=== PATIENT | female | born 1950 | race Caucasian/White ===

== ENCOUNTER 2022-01-14 23:21 | Inpatient (IN) | payer BC ==
[~2022-01-14] VITALS: Ht 154.9 cm; Wt 83.5 kg
[2022-01-14] MEDS ORDERED: ALBUTEROL FS 2.5 MG/3 ML VIAL.NEB CONTNEB ONE (23:30)
[2022-01-14] MEDS ORDERED: IPRATROPIUM NEB FS 0.5 MG/2.5 ML AMPUL.NEB NEB ONE (23:30)
[2022-01-14] MEDS ORDERED: methylPREDNISolone SOD SUCC 125 MG/2ML VIAL IV ONE (23:30)
--- NOTE | 2022-01-14 23:35 | NUR ---
EDA Perez FROM HOME C/O SOB SAT 97%. USED HER INHALER, DID NOT HELP. NEEDS BREATHING TREATMENT. PATIENT ALERT AND ORIENTED X3. IN BED 06 ON MONITOR AND POX, AWAITING MD AVALOS.
[2022-01-14] MEDS ORDERED: IPRATROPIUM NEB FS 0.5 MG/2.5 ML AMPUL.NEB ONE (23:39)
[2022-01-14] MEDS ORDERED: ALBUTEROL FS 2.5 MG/3 ML VIAL.NEB ONE (23:39)
--- NOTE | 2022-01-14 23:45 | NUR ---
RT AT BEDSIDE FOR BREATHING TREATMENT
[2022-01-14] MEDS ORDERED: methylPREDNISolone SOD SUCC 125 MG/2ML VIAL ONE (23:50)
--- NOTE | 2022-01-14 23:53 | NUR ---
ER CLIENT ACCOUNT SPECIALIST AT BEDSIDE
--- NOTE | 2022-01-15 00:03 | NUR ---
ABG results not transferring to [facility]. ABG results with pt on mask 10LPM O2: pH: 7.40 pCO2: 34.7 pO2: 190.4 HCO3: 21.4 BE: -2.7 ABG results reported to Kapil SANZ
[2022-01-15 00:24] LABS: BASOPHILS % (AUTO) 0.2 % (0.0-2.0); EOSINOPHILS % (AUTO) 0.9 % (0.0-6.0); HEMATOCRIT 35 % (33-45); HEMOGLOBIN 11.5 g/dL (11.5-14.8); LYMPHOCYTES # (AUTO) 1.4 K/uL (0.8-4.8); LYMPHOCYTES % (AUTO) 11.6 % (20.0-44.0); MEAN CORPUSCULAR HGB CONC 33 g/dl (31.0-36.0); MEAN CORPUSCULAR VOLUME 91 fL (82-100); MONOCYTES % (AUTO) 8.4 % (2.0-12.0); NEUTROPHILS # (AUTO) 9.5 K/uL (1.8-8.9); NEUTROPHILS % (AUTO) 78.9 % (43.0-81.0); PLATELET COUNT (AUTO) 192 K/uL (150-450); RED BLOOD CELL COUNT(AUTO) 3.82 MIL/uL (4.0-5.2)
[2022-01-15 00:51] LABS: CARBON DIOXIDE 25 mmol/L (21-32); CHLORIDE 104 mmol/L (98-107); CREATININE 0.7 mg/dL (0.6-1.3); GLUCOSE 120 mg/dL (74-106); POTASSIUM 3.7 mmol/L (3.5-5.1); SODIUM SERUM 138 mmol/L (136-145); UREA NITROGEN, BLOOD 20 mg/dL (7-18)
[2022-01-15] MEDS ORDERED: ONDANSETRON HCL/PF 4 MG/2 ML VIAL ONE (01:27)
[2022-01-15] MEDS ORDERED: IV NS 0.9% 1,000 ML IV ONE ×2 (01:30→06:30)
[2022-01-15] MEDS ORDERED: ONDANSETRON HCL/PF 4 MG/2 ML VIAL IV ONE (01:30)
--- NOTE | 2022-01-15 01:37 | NUR ---
Jerry arthur in [facility] - 01/15/22 at 0139 by JA COVID SWAB DONE AND SENT TO LAB
[2022-01-15] MEDS ORDERED: PRED50TA PO (02:24)
--- NOTE | 2022-01-15 02:36 | NUR ---
Jerry arthur in [facility] - 01/15/22 at 0247 by JA Patient discharged to home in stable condition. Written and verbal after care instructions given. Patient verbalizes understanding of instruction.
--- NOTE | 2022-01-15 02:47 | NUR ---
COVID SWAB DONE AND SENT TO LAB
[2022-01-15] MEDS ORDERED: IOHEXOL-350 100 ML VIAL IV ONE (03:08)
[2022-01-15] MEDS ORDERED: IV NS 0.9% 250 ML IV ONE (03:09)
--- NOTE | 2022-01-15 03:16 | NUR ---
PATIENT AT CT
[2022-01-15] MEDS ORDERED: CEFEPIME 1 GM VIAL ONE (04:27)
[2022-01-15] MEDS ORDERED: VANCOMYCIN 1 GM VIAL ONE (04:27)
[2022-01-15] MEDS ORDERED: MAGNESIUM HYDROXIDE 30 ML UDC PO PRN (04:30)
[2022-01-15] MEDS ORDERED: Z GUARD REMEDY 4 OZ OINT TP PRN (04:30)
[2022-01-15] MEDS ORDERED: ONDANSETRON HCL/PF 4 MG/2 ML VIAL IVP PRN (04:30)
[2022-01-15] MEDS ORDERED: MORPHINE SULFATE INJ 2 MG/ML DISP.SYRIN IV PRN (04:30)
[2022-01-15] MEDS ORDERED: VANCOMYCIN 1 GM in IV D5W 250 ML IV ONE (04:30)
[2022-01-15] MEDS ORDERED: HYDROCODONE/APAP 5/325MG TABLET PO PRN (04:30)
[2022-01-15] MEDS ORDERED: CEFEPIME 1 GM in IV D5W 50 ML IV ONE (04:30)
[2022-01-15] MEDS ORDERED: MAG HYDROX/AL HYDROX/SIMETH 30 ML UDC PO PRN (04:30)
--- NOTE | 2022-01-15 06:07 | NUR ---
CRITICAL LABS LACTIC ACID 2.1
--- NOTE | 2022-01-15 06:49 | NUR ---
REPORT GIVEN TO REYNALDO GILL
--- NOTE | 2022-01-15 07:45 | NUR ---
PT TRANSPORTED TO UNIT ON [facility] WITH EMT BEDSIDE. PT IS IN STABLE CONDITION FOR TRANSPORT.
--- NOTE | 2022-01-15 08:00 | NUR ---
MS RN OPENING NOTES: RECEIVED PT FROM ER, AWAKE, A/O X4, ABLE TO MAKE NEEDS KNOWN. PT CURRENTLY HAS NO S/S OF SOB OR ACUTE DISTRESS NOTED. PT IS ON 4L OXYGEN VIA NC. IV ACCESS LFA #18 INFUSING NS @ 75ML/HR. SAFETY MEASURES IN PLACE: HOB ELEVATED, BED LOCKED AND AT LOWEST POSITION, SIDERAILS UP X3. CALL LIGHT AND TABLE WITHIN REACH, WILL CONTINUE TO MONITOR THROUGHOUT SHIFT.
[2022-01-15] MEDS ORDERED: CEFEPIME 1 GM in IV D5W 50 ML IV SCH (09:00)
[2022-01-15] MEDS: PANTOPRAZOLE 40 MG VIAL IV SCH (09:15)
[2022-01-15] MEDS: ENOXAPARIN SODIUM 40 MG/0.4 ML DISP.SYRIN SQ SCH (09:17)
[2022-01-15] MEDS ORDERED: ALBU18HF2 IH (09:22)
[2022-01-15] MEDS ORDERED: OLME20TA13 PO (09:22)
[2022-01-15] MEDS ORDERED: IPRA42SP (09:22)
[2022-01-15] MEDS ORDERED: PRAV40TA3 PO (09:22)
[2022-01-15] MEDS ORDERED: LEVO112T2 PO (09:22)
[2022-01-15] MEDS ORDERED: LUBI24CA5 PO (09:22)
[2022-01-15 10:30] LABS: BILIRUBIN,DIRECT 0.1 mg/dL (0.0-0.2); BILIRUBIN,TOTAL 0.3 mg/dL (0.2-1.0)
[2022-01-15] MEDS ORDERED: CEFTRIAXONE 1 G in IV D5W 50 ML IV SCH (10:30)
[2022-01-15] MEDS: IV NS 0.9% 1,000 ML IV PRN (11:28)
[2022-01-15] MEDS: CEFTRIAXONE 2 G in IV D5W 100 ML IV SCH (11:38)
[2022-01-15] MEDS ORDERED: AZITHROMYCIN 250 MG TABLET PO ONE (12:00)
[2022-01-15] MEDS: predniSONE 20 MG TABLET PO SCH (12:05)
[2022-01-15 12:44] VITALS: BP 158/53
[2022-01-15] MEDS: ALBUTEROL FS 2.5 MG/3 ML VIAL.NEB NEB SCH ×2 (13:10→19:28)
[2022-01-15] MEDS: IPRATROPIUM NEB FS 0.5 MG/2.5 ML AMPUL.NEB NEB SCH ×2 (13:10→19:28)
[2022-01-15 16:00] VITALS: BP 123/61
[2022-01-15] MEDS ORDERED: VANCOMYCIN 1 GM in IV D5W 250 ML IV SCH (17:00)
[2022-01-15] MEDS ORDERED: CEFEPIME 2 GM in IV D5W 100 ML IV SCH (17:00)
[2022-01-15] MEDS: ATORVASTATIN 10 MG TABLET PO SCH (17:32)
--- NOTE | 2022-01-15 18:56 | NUR ---
MS RN CLOSING NOTES: PT IS ASLEEP BUT EASILY AWAKEN, A/O X4, ABLE TO MAKE NEEDS KNOWN. PT CURRENTLY HAS NO S/S OF SOB OR ACUTE DISTRESS NOTED. PT IS ON 4L OXYGEN VIA NC. IV ACCESS LFA #18 INFUSING NS @ 75ML/HR. SAFETY MEASURES IN PLACE: HOB ELEVATED, BED LOCKED AND AT LOWEST POSITION, SIDERAILS UP X3. CALL LIGHT AND TABLE WITHIN REACH, WILL ENDORSE TO NEXT SHIFT.
--- NOTE | 2022-01-15 19:45 | NUR ---
MS RN OPENING NOTES: RECEIVED PATIENT IN BED; AWAKE, ALERT AND ORIENTED X4. BREATHING IS EVEN AND NONLABORED. WITH OXYGEN INHALATION @ 4LPM VIA NASAL CANNULA; TOLERATING WELL. IN NO ACUTE DISTRESS NOTED. DENIES ANY PAIN OR DISCOMFORT AT THIS TIME. WITH IV ACCESS OF LEFT FOREARM G#18; PATENT AND INTACT INFUSING WITH NS REGULATED @ 75 ML/HR; FLUSHES WELL. ABLE TO MAKE NEEDS KNOWN. SAFETY MEASURES IMPLEMENTED: HEAD OF BED ELEVATED, CALL LIGHT & TABLE WITHIN REACH, SIDE RAILS UP X2, BED IN LOWEST LOCKED POSITION. WILL CONTINUE TO MONITOR
[2022-01-15 20:00] VITALS: BP 128/69
[2022-01-16] MEDS: ALBUTEROL FS 2.5 MG/3 ML VIAL.NEB NEB SCH ×4 (01:30→19:39)
[2022-01-16] MEDS: IPRATROPIUM NEB FS 0.5 MG/2.5 ML AMPUL.NEB NEB SCH ×4 (01:30→19:39)
[2022-01-16 06:24] LABS: HEMATOCRIT 30 % (33-45); HEMOGLOBIN 9.9 g/dL (11.5-14.8); LYMPHOCYTES # (AUTO) 1.4 K/uL (0.8-4.8); LYMPHOCYTES % (AUTO) 9.5 % (20.0-44.0); MEAN CORPUSCULAR HGB CONC 33 g/dl (31.0-36.0); MEAN CORPUSCULAR VOLUME 91 fL (82-100); MONOCYTES # (AUTO) 1.8 K/uL (0.1-1.30); MONOCYTES % (AUTO) 11.9 % (2.0-12.0); NEUTROPHILS # (AUTO) 11.8 K/uL (1.8-8.9); NEUTROPHILS % (AUTO) 78.6 % (43.0-81.0); PLATELET COUNT (AUTO) 192 K/uL (150-450); RED BLOOD CELL COUNT(AUTO) 3.32 MIL/uL (4.0-5.2); WHITE BLOOD COUNT (AUTO) 15.1 K/uL (4.3-11.0)
--- NOTE | 2022-01-16 07:05 | NUR ---
MS RN CLOSING NOTES: PATIENT IN BED; AWAKE, ALERT AND ORIENTED X4. BREATHING EVENLY AND UNLABORED. WITH OXYGEN INHALATION @ 4LPM VIA NASAL CANNULA; TOLERATING WELL. IN NO ACUTE DISTRESS NOTED. DENIES ANY PAIN OR DISCOMFORT AT THIS TIME. WITH IV ACCESS OF LEFT FOREARM G#18; PATENT AND INTACT INFUSING WITH NS REGULATED @ 75 ML/HR; FLUSHES WELL. SAFETY MEASURES IN PLACE: HEAD OF BED ELEVATED, CALL LIGHT & TABLE WITHIN REACH, SIDE RAILS UP X2, BED IN LOWEST LOCKED POSITION. ENDORSED TO MORNING SHIFT FOR WEI.
[2022-01-16 07:19] LABS: CALCIUM, SERUM 8.6 mg/dL (8.5-10.1); CREATININE 0.6 mg/dL (0.6-1.3); PHOSPHORUS 3.2 mg/dL (2.5-4.9); POTASSIUM 3.9 mmol/L (3.5-5.1)
[2022-01-16] MEDS: LEVOTHYROXINE SODIUM 112 MCG TABLET PO SCH (07:30)
[2022-01-16 07:32] LABS: THYROID STIMULATING HORMONE 0.333 uIU/mL (0.358-3.74)
--- NOTE | 2022-01-16 07:45 | NUR ---
MS RN OPENING NOTES RECEIVED PATIENT IN BED; ASLEEP. BREATHING EVEN AND UNLABORED. ON O2 THERAPY @ 4LPM VIA NASAL CANNULA; TOLERATING WELL. IN NO ACUTE RESPIRATORY DISTRESS. NOS/S OF PAIN NOTED. WITH IV ACCESS OF LEFT FOREARM G#18; PATENT AND INTACT INFUSING WITH NS REGULATED @ 75 ML/HR; FLUSHES WELL. SAFETY PRECAUTIONS IN PLACE: BED IN LOW POSITION AND LOCKED, RAILS UP X2, CALL LIGHT WITHIN REACH. WILL CONTINUE TO MONITOR PATIENT.
[2022-01-16] MEDS: predniSONE 20 MG TABLET PO SCH (08:22)
[2022-01-16] MEDS: LOSARTAN POTASSIUM 50 MG TABLET PO SCH (08:23)
[2022-01-16] MEDS: ENOXAPARIN SODIUM 40 MG/0.4 ML DISP.SYRIN SQ SCH (08:23)
[2022-01-16] MEDS: PANTOPRAZOLE 40 MG VIAL IV SCH (08:23)
[2022-01-16] MEDS: CEFTRIAXONE 2 G in IV D5W 100 ML IV SCH (10:27)
[2022-01-16] MEDS: AZITHROMYCIN 250 MG TABLET PO SCH (11:26)
[2022-01-16] MEDS: ACETAMINOPHEN 325 MG TABLET PO PRN (16:38)
--- NOTE | 2022-01-16 16:39 | NUR ---
MS RN NOTES PATIENT COMPLAINING OF HEADACHE 4 OUT OF 10; REQUESTING PAIN MEDICATION. PRN TYLENOL ADMINISTERED.
[2022-01-16] MEDS: ATORVASTATIN 10 MG TABLET PO SCH (17:33)
--- NOTE | 2022-01-16 18:47 | NUR ---
MS RN CLOSING NOTES PATIENT REMAINS IN BED; ASLEEP. BREATHING EVEN AND UNLABORED. A/O X4 DURING SHIFT. ON O2 THERAPY @ 4LPM VIA NASAL CANNULA; TOLERATING WELL. IN NO ACUTE RESPIRATORY DISTRESS. WITH IV ACCESS OF LEFT FOREARM G#18; PATENT AND INTACT INFUSING WITH NS @ 75 ML/HR; FLUSHES WELL. ALL NEEDS ATTENDED DURING THE DAY. SAFETY PRECAUTIONS IN PLACE: BED IN LOW POSITION AND LOCKED, RAILS UP X2, CALL LIGHT WITHIN REACH. WILL ENDORSE TO COMMUTATOR OPERATOR NURSE FOR WEI.
--- NOTE | 2022-01-16 19:48 | NUR ---
RN OPENING NOTE PATIENT AWAKE IN BED W/ AT BEDSIDE. A/OX4. NO S/S OF DISTRESS, BREATHING W/O DIFFICULTY ON RM AIR. LFA #18 INTACT AND PATENT W/ NS 75ML/HR. SAFETY MEASURES IN PLACE: BED LOCKED, AT LOWEST POSITION, RAILS UP X3, CALL HOBBS WITHIN REACH. WILL CONTINUE TO MONITOR PATIENT. Addendum: 01/16/22 at 1951 by HENOK MOSES RN CORRECTION: BREATHING W/O DIFFICULTY ON 4L NC.
[2022-01-16 20:00] VITALS: BP 131/57
[2022-01-17] MEDS: IPRATROPIUM NEB FS 0.5 MG/2.5 ML AMPUL.NEB NEB SCH ×5 (02:14→20:59)
[2022-01-17] MEDS: ALBUTEROL FS 2.5 MG/3 ML VIAL.NEB NEB SCH ×4 (02:14→20:25)
[2022-01-17] MEDS: IV NS 0.9% 1,000 ML IV PRN (04:11)
--- NOTE | 2022-01-17 05:50 | NUR ---
RN NOTE PATIENT'S LFA IV SITE BECAME INFILTRATED. IV WAS REMOVED SUCCESSFULLY; ALL PIECES ACCOUNTED FOR INCLUDING IV CATH. PRESSURE DRESSING APPLIED. NEW IV INSERTED RFA #22 SUCCESSFULLY. PATIENT STABLE; WILL CONTINUE TO MONITOR PATIENT.
--- NOTE | 2022-01-17 06:56 | NUR ---
RN CLOSING NOTE PATIENT ASLEEP IN BED. A/OX4. NO S/S OF DISTRESS, BREATHING W/O DIFFICULTY ON 4L NC (98%). QUETA #22 INTACT AND PATENT W/ NS 75ML/HR. SAFETY MEASURES IN PLACE: BED LOCKED, IN LOWEST POSITION, RAILS UP X2, CALL HOBBS WITHIN REACH. REPORT GIVEN TO AND ACKNOWLEDGED BY NANNETTE RNTAMMY, FOR WEI.
[2022-01-17 07:14] LABS: BASOPHILS % (AUTO) 0.1 % (0.0-2.0); EOSINOPHILS % (AUTO) 0.1 % (0.0-6.0); HEMATOCRIT 30 % (33-45); HEMOGLOBIN 9.9 g/dL (11.5-14.8); LYMPHOCYTES # (AUTO) 1.6 K/uL (0.8-4.8); LYMPHOCYTES % (AUTO) 14.3 % (20.0-44.0); MEAN CORPUSCULAR HGB CONC 33 g/dl (31.0-36.0); MEAN CORPUSCULAR VOLUME 90 fL (82-100); MONOCYTES % (AUTO) 8.4 % (2.0-12.0); NEUTROPHILS # (AUTO) 8.8 K/uL (1.8-8.9); NEUTROPHILS % (AUTO) 77.1 % (43.0-81.0); PLATELET COUNT (AUTO) 192 K/uL (150-450); RED BLOOD CELL COUNT(AUTO) 3.32 MIL/uL (4.0-5.2); WHITE BLOOD COUNT (AUTO) 11.4 K/uL (4.3-11.0)
--- NOTE | 2022-01-17 07:30 | NUR ---
RN OPENING NOTE PATIENT AWAKE IN BED. A/OX4. NO S/S OF DISTRESS, BREATHING W/O DIFFICULTY ON RM AIR. RFA # 22 INTACT AND PATENT W/ NS 75ML/HR. SAFETY MEASURES IN PLACE: BED LOCKED, AT LOWEST POSITION, RAILS UP X3, CALL HOBBS WITHIN REACH.
[2022-01-17 08:00] VITALS: BP 120/50
[2022-01-17] MEDS: predniSONE 20 MG TABLET PO SCH (08:32)
[2022-01-17] MEDS: PANTOPRAZOLE 40 MG VIAL IV SCH (08:32)
[2022-01-17] MEDS: LOSARTAN POTASSIUM 50 MG TABLET PO SCH (08:32)
[2022-01-17] MEDS: LEVOTHYROXINE SODIUM 112 MCG TABLET PO SCH (08:32)
[2022-01-17] MEDS: ENOXAPARIN SODIUM 40 MG/0.4 ML DISP.SYRIN SQ SCH (08:34)
[2022-01-17 09:34] LABS: CALCIUM, SERUM 8.4 mg/dL (8.5-10.1); CREATININE 0.6 mg/dL (0.6-1.3); POTASSIUM 3.8 mmol/L (3.5-5.1)
[2022-01-17] MEDS: AZITHROMYCIN 250 MG TABLET PO SCH (11:20)
[2022-01-17] MEDS: CEFTRIAXONE 2 G in IV D5W 100 ML IV SCH (11:20)
[2022-01-17] MEDS ORDERED: FUROSEMIDE 40 MG/4 ML VIAL IV ONE (11:30)
--- NOTE | 2022-01-17 15:00 | NUR ---
RN NOTE PATIENTS 02TITRATED TO 2L WILL MONITOR 1600 VITALS FOR O2 SATURATION.
[2022-01-17 16:00] VITALS: BP 114/44
[2022-01-17 16:04] VITALS: BP 114/44
[2022-01-17] MEDS: ATORVASTATIN 10 MG TABLET PO SCH (17:32)
--- NOTE | 2022-01-17 18:43 | NUR ---
RN CLOSING NOTE PATIENT ASLEEP IN BED. A/OX4. NO S/S OF DISTRESS, BREATHING W/O DIFFICULTY ON 4L NC (98%). QUETA #22 INTACT AND PATENT W/ NS 75ML/HR. SAFETY MEASURES IN PLACE: BED LOCKED, IN LOWEST POSITION, RAILS UP X2, CALL HOBBS WITHIN REACH. WILL ENDORSE TO NIGHT NURSE FOR WEI.
--- NOTE | 2022-01-17 19:15 | NUR ---
RN opening notes Received Pt from morning nurse. Pt is sitting in bed accompanied by her . Pt is alert and orientedX4. On 2 L NC. No SOB. No S/S of distress noted. R forearm # 22 is clean, intact and SL. Safety precautions is maintained. Bed at low position, brakes locked, side rails upX2, hob elevated, bed alarm is on, bedside commode at the bedside and call light is within reach. will continue to monitor.
[2022-01-17 20:00] VITALS: BP 100/33
[2022-01-17 21:12] VITALS: BP 101/33
[2022-01-18] MEDS: IPRATROPIUM NEB FS 0.5 MG/2.5 ML AMPUL.NEB NEB SCH ×3 (01:14→12:51)
[2022-01-18] MEDS: ALBUTEROL FS 2.5 MG/3 ML VIAL.NEB NEB SCH ×3 (01:15→12:51)
[2022-01-18 06:29] LABS: BASOPHILS % (AUTO) 0.3 % (0.0-2.0); EOSINOPHILS % (AUTO) 0.3 % (0.0-6.0); HEMATOCRIT 32 % (33-45); HEMOGLOBIN 10.9 g/dL (11.5-14.8); LYMPHOCYTES # (AUTO) 2.1 K/uL (0.8-4.8); MEAN CORPUSCULAR HGB CONC 34 g/dl (31.0-36.0); MEAN CORPUSCULAR VOLUME 89 fL (82-100); MONOCYTES # (AUTO) 1.1 K/uL (0.1-1.30); MONOCYTES % (AUTO) 13.5 % (2.0-12.0); NEUTROPHILS # (AUTO) 4.8 K/uL (1.8-8.9); NEUTROPHILS % (AUTO) 59.9 % (43.0-81.0); PLATELET COUNT (AUTO) 209 K/uL (150-450); RED BLOOD CELL COUNT(AUTO) 3.57 MIL/uL (4.0-5.2)
--- NOTE | 2022-01-18 06:34 | NUR ---
RN closing notes Pt is resting in bed comfortably. Pt is alert and orientedX4. On 2 L NC. No SOB. No S/S of distress noted. VS is stable. R forearm # 22 is clean, intact and SL. Kept Pt clean, dry and comfortbale. Safety precautions is maintained. Bed at low position, brakes locked, side rails upX2, hob elevated, bed alarm is on, bedside commode at the bedside and call light is within reach. Will endorse to am nurse for WEI.
--- NOTE | 2022-01-18 07:50 | NUR ---
MS RN OPENING NOTE Patient in bed, awake. A/O x 4, able to make needs known. On O2 at 2 LPM, breathing evenly and unlabored. No SOB or s/s of distress noted. IV access on RFA #22 SL, intact and patent. Patient denies any pain or discomfort at this time. Safety precautions in place: bed in low, locked position; siderails up x 2; call ight6 within reach. Will continue to monitor.
[2022-01-18 07:56] LABS: CALCIUM, SERUM 8.7 mg/dL (8.5-10.1); CARBON DIOXIDE 32 mmol/L (21-32); CHLORIDE 102 mmol/L (98-107); CREATININE 0.6 mg/dL (0.6-1.3); GLUCOSE 88 mg/dL (74-106); PHOSPHORUS 3.8 mg/dL (2.5-4.9); POTASSIUM 3.6 mmol/L (3.5-5.1); SODIUM SERUM 140 mmol/L (136-145); UREA NITROGEN, BLOOD 10 mg/dL (7-18)
[2022-01-18 08:00] VITALS: BP 114/43
--- NOTE | 2022-01-18 08:26 | NUR ---
RN NOTE Dr. Deutsch removed O2 supplementation, to monitor patient without O2.
[2022-01-18] MEDS: LEVOTHYROXINE SODIUM 112 MCG TABLET PO SCH ×2 (08:33→08:42)
[2022-01-18] MEDS: ENOXAPARIN SODIUM 40 MG/0.4 ML DISP.SYRIN SQ SCH (08:42)
[2022-01-18] MEDS: predniSONE 20 MG TABLET PO SCH (08:42)
[2022-01-18] MEDS: AZITHROMYCIN 250 MG TABLET PO SCH (08:42)
[2022-01-18 08:44] VITALS: BP 114/43
[2022-01-18] MEDS: LOSARTAN POTASSIUM 50 MG TABLET PO SCH (08:44)
[2022-01-18] MEDS: ACETAMINOPHEN 325 MG TABLET PO PRN (08:44)
[2022-01-18] MEDS ORDERED: PANTOPRAZOLE 40 MG TABLET.DR PO SCH (09:00)
--- NOTE | 2022-01-18 09:30 | NUR ---
RN NOTE Rechecked patient's SPO2 96%. Will continue to monitor.
[2022-01-18] MEDS ORDERED: PRED50TA PO (09:41)
[2022-01-18] MEDS ORDERED: FUROSEMIDE 20 MG/2 ML VIAL IV ONE (10:00)
[2022-01-18] MEDS: CEFTRIAXONE 2 G in IV D5W 100 ML IV SCH (10:20)
--- NOTE | 2022-01-18 11:00 | NUR ---
RN NOTE Rechecked patient's SPO2 98%. Will continue to monitor.
--- NOTE | 2022-01-18 14:00 | NUR ---
CEMENT MIXER NOTES PATIENT RECEIVED ON BED AWAKE / A/O X 4 , ABLE TO MAKE NEEDS KNOWN , DUE MEDS ATB AND PO MEDS GIVEN , BRP AND PT AMBULATE AD LUIS M , NO SOB AND DISTRESS NOTED , SEEN BY MD AND WITH ORDER FOR D/C TO HOME , DISCHARGED INSTRUCTIONS PROVIDED REGARDING MEDICATIONS , FOLLOW UP WITH PRIMARY PCP AND SAFETY PRECAUTIONS AND ABLE TO UNDERSTAND INSTRUCTIONS PROVIDED , LFA SALINE LOCK REMOVED AND PATIENT LEFT AROUND 1400 WITH FAMILY VIA PRIVATE CAR.
== END 2022-01-18 13:10 | disposition home or self-care (01) | DRG 189 ==
LOC: ER 23:56 → TRANSITION 01-15 05:13 → MED 01-15 06:25
PROVIDERS: ADMIT Nurse Practitioner Acute Care; ATTEND Nurse Practitioner Acute Care
DX: J96.01 Acute respiratory failure with hypoxia (principal); J45.901 Unspecified asthma with (acute) exacerbation; E87.2 Acidosis; J84.9 Interstitial pulmonary disease, unspecified; E78.5 Hyperlipidemia, unspecified; I10 Essential (primary) hypertension; K21.9 Gastro-esophageal reflux disease without esophagitis; Z20.822 Contact with and (suspected) exposure to COVID-19
CPT/HCPCS: 36415; 36600; 70360-TC; 71045-TC; 80048-TC; 80202-TC; 82247-TC; 82248-TC; 82803-TC; 83605-TC; 83735-TC; 83880; 84100-TC; 84443-TC; 85025-TC; 87040-TC; 87081-TC; 92526; 92611-TC; 94799-TC; C9113; G0378; J0692; J0696; J1650; J1940; J2270; J2405; J2930; J3370; J7030; J7040; J7050; J7060; Q9967

== ENCOUNTER 2023-05-30 22:42 | Emergency (ER) | payer BC, MEDICARE, OTHER ==
[~2023-05-30] VITALS: Ht 152.4 cm; Wt 83.9 kg
[~2023-05-30 22:42] MED LIST: ALBU18HF2 IH; IPRA42SP; LEVO112T2 PO; LEVO50TA PO; LUBI24CA5 PO; OLME20TA13 PO; PRAV40TA3 PO; PRED50TA PO; TRAM1TAB PO; VALS80TA2 PO
[2023-05-30] MEDS ORDERED: methylPREDNISolone SOD SUCC 125 MG/2ML VIAL ONE (23:33)
[2023-05-30 23:38] LABS: CALCIUM, SERUM 8.7 mg/dL (8.5-10.1); CARBON DIOXIDE 27 mmol/L (21-32); CHLORIDE 103 mmol/L (98-107); CREATININE 0.9 mg/dL (0.6-1.3); GLUCOSE 108 mg/dL (74-106); POTASSIUM 4.1 mmol/L (3.5-5.1); SODIUM SERUM 137 mmol/L (136-145); UREA NITROGEN, BLOOD 22 mg/dL (7-18)
[2023-05-30] MEDS: methylPREDNISolone SOD SUCC 125 MG/2ML VIAL IV ONE (23:45)
[2023-05-30] MEDS: ALBUTEROL FS 2.5 MG/3 ML VIAL.NEB NEB ONE (23:48)
[2023-05-30] MEDS: IPRATROPIUM NEB FS 0.5 MG/2.5 ML AMPUL.NEB NEB ONE (23:48)
[2023-05-30 23:49] LABS: BASOPHILS # (AUTO) 0.1 K/uL (0.0-0.2); BASOPHILS % (AUTO) 0.7 % (0.0-2.0); EOSINOPHILS # (AUTO) 0.2 K/uL (0.0-0.7); EOSINOPHILS % (AUTO) 1.9 % (0.0-6.0); HEMATOCRIT 35 % (33-45); HEMOGLOBIN 11.6 g/dL (11.5-14.8); LYMPHOCYTES # (AUTO) 2.2 K/uL (0.8-4.8); MEAN CORPUSCULAR HEMOGLOBIN 30 PG (26.0-33.0); MEAN CORPUSCULAR HGB CONC 33 g/dl (31.0-36.0); MEAN CORPUSCULAR VOLUME 91 fL (82-100); NEUTROPHILS # (AUTO) 6.6 K/uL (1.8-8.9); NEUTROPHILS % (AUTO) 65.4 % (43.0-81.0); PLATELET COUNT (AUTO) 232 K/uL (150-450); RED BLOOD CELL COUNT(AUTO) 3.88 MIL/uL (4.0-5.2); RED CELL DISTRIBUTION WIDTH 13.7 % (11.5-15.0)
[2023-05-30] MEDS ORDERED: IPRATROPIUM NEB FS 0.5 MG/2.5 ML AMPUL.NEB ONE (23:49)
[2023-05-30] MEDS ORDERED: ALBUTEROL FS 2.5 MG/3 ML VIAL.NEB ONE (23:49)
[2023-05-30 23:50] LABS: ALANINE AMINOTRANSFERASE 28 U/L (12-78); ALBUMIN 3.6 g/dL (3.4-5.0); ALKALINE PHOSPHATASE 99 U/L (46-116); ASPARTATE AMINOTRANSFERASE 13 U/L (15-37); BILIRUBIN,TOTAL 0.2 mg/dL (0.2-1.0); NT-PRO BNP 170 pg/mL (0-125); TOTAL PROTEIN, SERUM 7.2 g/dL (6.4-8.2)
[2023-05-30 23:53] VITALS: O2SAT 96
[2023-05-30 23:55] LABS: INR 0.97 (0.91-1.10); PARTIAL THROMBOPLASTIN TIME 26.6 SEC (24.3-34.3); PROTHROMBIN TIME 10.3 SECS (9.2-11.1)
[2023-05-31 00:07] VITALS: O2SAT 98
[2023-05-31] MEDS ORDERED: Magnesium 1GM/D5W 100ML PREMIX 100 ML IV ONE ×2 (00:47→01:35)
[2023-05-31] MEDS: Magnesium 1GM/D5W 100ML PREMIX 200 ML IV ONE (00:50)
[2023-05-31] MEDS ORDERED: IPRATROPIUM NEB FS 0.5 MG/2.5 ML AMPUL.NEB ONE (01:07)
[2023-05-31] MEDS ORDERED: ALBUTEROL FS 2.5 MG/3 ML VIAL.NEB ONE (01:07)
[2023-05-31 01:08] VITALS: O2SAT 98
[2023-05-31] MEDS: IPRATROPIUM NEB FS 0.5 MG/2.5 ML AMPUL.NEB NEB ONE (01:11)
[2023-05-31] MEDS: ALBUTEROL FS 2.5 MG/3 ML VIAL.NEB NEB ONE (01:11)
[2023-05-31 01:27] VITALS: O2SAT 97
[2023-05-31] MEDS ORDERED: PRED50TA PO ×3 (02:06→17:05)
[2023-05-31 02:23] VITALS: BP 125/66; TEMP 98.6; O2SAT 97
[2023-05-31] MEDS ORDERED: ASPI-1169 PO (17:05)
[2023-05-31] MEDS ORDERED: IPRA0.2S9 IH (17:05)
[2023-05-31] MEDS ORDERED: ALBU2.5V38 IH (17:05)
== END 2023-05-31 02:24 | disposition home or self-care (01) ==
LOC: ER 22:52
DX: J45.901 Unspecified asthma with (acute) exacerbation (principal); R06.02 Shortness of breath; R07.89 Other chest pain; I10 Essential (primary) hypertension; E03.9 Hypothyroidism, unspecified; Z98.890 Other specified postprocedural states; Z79.899 Other long term (current) drug therapy
CPT/HCPCS: 99291; 96375; 93005; 71045; 85025; 80048; 80076; 36415; 84484; 85730; 83880; 94640 ×2; 96365; J2930; J3475 ×2

== ENCOUNTER 2023-05-31 15:53 | Inpatient (IN) | payer BC ==
[~2023-05-31] VITALS: Ht 152.4 cm; Wt 83.9 kg
[2023-05-31 16:28] LABS: HEMATOCRIT 34 % (33-45); HEMOGLOBIN 11.2 g/dL (11.5-14.8); LYMPHOCYTES # (AUTO) 0.8 K/uL (0.8-4.8); LYMPHOCYTES % (AUTO) 6.9 % (20.0-44.0); MEAN CORPUSCULAR HEMOGLOBIN 30 PG (26.0-33.0); MEAN CORPUSCULAR HGB CONC 33 g/dl (31.0-36.0); MEAN CORPUSCULAR VOLUME 90 fL (82-100); MONOCYTES # (AUTO) 0.4 K/uL (0.1-1.30); MONOCYTES % (AUTO) 3.8 % (2.0-12.0); NEUTROPHILS % (AUTO) 89.3 % (43.0-81.0); PLATELET COUNT (AUTO) 251 K/uL (150-450); RED BLOOD CELL COUNT(AUTO) 3.79 MIL/uL (4.0-5.2); RED CELL DISTRIBUTION WIDTH 14.1 % (11.5-15.0); WHITE BLOOD COUNT (AUTO) 11.2 K/uL (4.3-11.0)
[2023-05-31] MEDS ORDERED: IPRATROPIUM NEB FS 0.5 MG/2.5 ML AMPUL.NEB NEB ONE (16:30)
[2023-05-31] MEDS ORDERED: ALBUTEROL FS 2.5 MG/3 ML VIAL.NEB CONTNEB ONE (16:30)
[2023-05-31] MEDS ORDERED: Magnesium 1GM/D5W 100ML PREMIX 200 ML IV ONE (16:30)
[2023-05-31] MEDS ORDERED: methylPREDNISolone SOD SUCC 125 MG/2ML VIAL IV ONE (16:30)
[2023-05-31] MEDS ORDERED: Magnesium 1GM/D5W 100ML PREMIX 100 ML IV ONE (16:38)
[2023-05-31] MEDS ORDERED: methylPREDNISolone SOD SUCC 125 MG/2ML VIAL ONE (16:38)
[2023-05-31] MEDS ORDERED: ALBUTEROL FS 2.5 MG/3 ML VIAL.NEB ONE (16:44)
[2023-05-31] MEDS ORDERED: IPRATROPIUM NEB FS 0.5 MG/2.5 ML AMPUL.NEB ONE (16:44)
[2023-05-31 16:48] VITALS: O2SAT 97
[2023-05-31 17:04] LABS: ALBUMIN 3.6 g/dL (3.4-5.0); BILIRUBIN,DIRECT 0.1 mg/dL (0.0-0.2); BILIRUBIN,TOTAL 0.3 mg/dL (0.2-1.0); CALCIUM, SERUM 8.9 mg/dL (8.5-10.1); CREATININE 1.1 mg/dL (0.6-1.3); POTASSIUM 3.6 mmol/L (3.5-5.1); TOTAL PROTEIN, SERUM 7.4 g/dL (6.4-8.2)
[2023-05-31] MEDS ORDERED: PRED50TA PO (17:05)
[2023-05-31] MEDS ORDERED: ALBU2.5V38 IH (17:05)
[2023-05-31] MEDS ORDERED: IPRA0.2S9 IH (17:05)
[2023-05-31] MEDS ORDERED: ASPI-1169 PO (17:05)
[2023-05-31 17:35] VITALS: O2SAT 97
[2023-05-31] MEDS ORDERED: ONDANSETRON HCL/PF 4 MG/2 ML VIAL IVP PRN (18:00)
[2023-05-31] MEDS ORDERED: MAGNESIUM HYDROXIDE 30 ML UDC PO PRN (18:00)
[2023-05-31] MEDS ORDERED: IPRATROPIUM NEB FS 0.5 MG/2.5 ML AMPUL.NEB NEB PRN (18:00)
[2023-05-31] MEDS ORDERED: ALBUTEROL FS 2.5 MG/0.5 ML VIAL.NEB NEB PRN (18:00)
[2023-05-31] MEDS ORDERED: Z GUARD REMEDY 4 OZ OINT TP PRN (18:00)
[2023-05-31] MEDS ORDERED: HYDROCODONE/APAP 5/325MG TABLET PO PRN (18:00)
[2023-05-31] MEDS ORDERED: MAG HYDROX/AL HYDROX/SIMETH 30 ML UDC PO PRN (18:00)
[2023-05-31 21:50] VITALS: BP 131/52; TEMP 99; O2SAT 97
[2023-05-31 22:30] VITALS: BP 131/52; TEMP 99; O2SAT 97
[2023-05-31] MEDS: ATORVASTATIN 40 MG TABLET PO SCH (22:32)
[2023-05-31] MEDS: LEVOFLOXACIN (250MG) 250 MG TABLET PO SCH (22:33)
[2023-05-31] MEDS: methylPREDNISolone SOD SUCC 125 MG/2ML VIAL IV SCH (22:36)
[2023-05-31] MEDS: ENOXAPARIN SODIUM 40 MG/0.4 ML DISP.SYRIN SQ SCH (22:45)
[2023-06-01] VITALS (11 sets, daily range): BP systolic 108–122; BP diastolic 41–57; TEMP 97.5–98.4; O2SAT 96–99
[2023-06-01] MEDS: methylPREDNISolone SOD SUCC 125 MG/2ML VIAL IV SCH ×3 (05:17→20:16)
[2023-06-01 05:49] LABS: BASOPHILS % (AUTO) 0.1 % (0.0-2.0); HEMATOCRIT 35 % (33-45); HEMOGLOBIN 11.3 g/dL (11.5-14.8); LYMPHOCYTES # (AUTO) 1.4 K/uL (0.8-4.8); LYMPHOCYTES % (AUTO) 9.1 % (20.0-44.0); MEAN CORPUSCULAR HEMOGLOBIN 30 PG (26.0-33.0); MEAN CORPUSCULAR HGB CONC 32 g/dl (31.0-36.0); MEAN CORPUSCULAR VOLUME 91 fL (82-100); MONOCYTES # (AUTO) 0.4 K/uL (0.1-1.30); MONOCYTES % (AUTO) 2.5 % (2.0-12.0); NEUTROPHILS # (AUTO) 13.4 K/uL (1.8-8.9); NEUTROPHILS % (AUTO) 88.3 % (43.0-81.0); PLATELET COUNT (AUTO) 263 K/uL (150-450); RED BLOOD CELL COUNT(AUTO) 3.81 MIL/uL (4.0-5.2); WHITE BLOOD COUNT (AUTO) 15.1 K/uL (4.3-11.0)
[2023-06-01 06:03] LABS: CALCIUM, SERUM 9.5 mg/dL (8.5-10.1); CREATININE 0.8 mg/dL (0.6-1.3); MAGNESIUM 2.3 mg/dL (1.8-2.4); POTASSIUM 4.7 mmol/L (3.5-5.1)
[2023-06-01] MEDS ORDERED: LEVOTHYROXINE SODIUM 112 MCG TABLET PO SCH (07:30)
[2023-06-01] MEDS: LEVOTHYROXINE SODIUM 112 MCG TABLET PO SCH (08:01)
[2023-06-01] MEDS: PANTOPRAZOLE 40 MG TABLET.DR PO SCH (08:01)
[2023-06-01] MEDS: LOSARTAN POTASSIUM 25 MG TABLET PO SCH ×2 (08:33→08:47)
[2023-06-01] MEDS ORDERED: ASPIRIN 81 MG TAB.CHEW PO SCH (09:00)
[2023-06-01] MEDS: ALBUTEROL FS 2.5 MG/0.5 ML VIAL.NEB NEB SCH ×3 (12:30→19:46)
[2023-06-01] MEDS: GUAIFENESIN LA 600 MG TABLET.SA PO SCH ×2 (12:38→20:16)
[2023-06-01] MEDS: IPRATROPIUM NEB FS 0.5 MG/2.5 ML AMPUL.NEB NEB SCH ×2 (13:09→19:46)
[2023-06-01] MEDS ORDERED: DEXTROSE 50%-WATER 50 ML DISP.SYRIN IV PRN (14:30)
[2023-06-01] MEDS: ACETAMINOPHEN 325 MG TABLET PO PRN (15:09)
[2023-06-01] MEDS: BLOOD SUGAR DIAGNOSTIC 1 EACH STRIP IN SCH ×2 (17:55→21:21)
[2023-06-01] MEDS: LEVOFLOXACIN (250MG) 250 MG TABLET PO SCH (20:17)
[2023-06-01] MEDS: ENOXAPARIN SODIUM 40 MG/0.4 ML DISP.SYRIN SQ SCH (20:19)
[2023-06-01] MEDS: ATORVASTATIN 40 MG TABLET PO SCH (21:05)
[2023-06-01] MEDS: INSULIN REGULAR, HUMAN 100 UNIT/ML 3 ML VIAL SQ PRN (21:50)
[2023-06-02] VITALS (14 sets, daily range): BP systolic 102–127; BP diastolic 47–60; TEMP 97.7–98.2; O2SAT 93–99
[2023-06-02] MEDS: IPRATROPIUM NEB FS 0.5 MG/2.5 ML AMPUL.NEB NEB SCH ×4 (01:39→19:39)
[2023-06-02] MEDS: ALBUTEROL FS 2.5 MG/0.5 ML VIAL.NEB NEB SCH ×4 (01:39→19:39)
[2023-06-02] MEDS: ACETAMINOPHEN 325 MG TABLET PO PRN (02:03)
[2023-06-02] MEDS: methylPREDNISolone SOD SUCC 125 MG/2ML VIAL IV SCH ×3 (05:09→20:46)
[2023-06-02] MEDS ORDERED: LEVOTHYROXINE SODIUM 112 MCG TABLET PO SCH (06:00)
[2023-06-02 06:23] LABS: HEMATOCRIT 32 % (33-45); HEMOGLOBIN 10.5 g/dL (11.5-14.8); LYMPHOCYTES # (AUTO) 1.1 K/uL (0.8-4.8); LYMPHOCYTES % (AUTO) 7.8 % (20.0-44.0); MEAN CORPUSCULAR HEMOGLOBIN 30 PG (26.0-33.0); MEAN CORPUSCULAR HGB CONC 33 g/dl (31.0-36.0); MEAN CORPUSCULAR VOLUME 91 fL (82-100); MONOCYTES # (AUTO) 0.5 K/uL (0.1-1.30); MONOCYTES % (AUTO) 3.8 % (2.0-12.0); NEUTROPHILS # (AUTO) 12.5 K/uL (1.8-8.9); NEUTROPHILS % (AUTO) 88.4 % (43.0-81.0); PLATELET COUNT (AUTO) 230 K/uL (150-450); RED BLOOD CELL COUNT(AUTO) 3.52 MIL/uL (4.0-5.2); RED CELL DISTRIBUTION WIDTH 14.1 % (11.5-15.0); WHITE BLOOD COUNT (AUTO) 14.1 K/uL (4.3-11.0)
[2023-06-02] MEDS: BLOOD SUGAR DIAGNOSTIC 1 EACH STRIP IN SCH ×4 (06:23→21:10)
[2023-06-02 06:37] LABS: ALBUMIN 3.2 g/dL (3.4-5.0); BILIRUBIN,TOTAL 0.4 mg/dL (0.2-1.0); CALCIUM, SERUM 9.1 mg/dL (8.5-10.1); MAGNESIUM 2.1 mg/dL (1.8-2.4); PHOSPHORUS 3.9 mg/dL (2.5-4.9); POTASSIUM 4.1 mmol/L (3.5-5.1); TOTAL PROTEIN, SERUM 6.5 g/dL (6.4-8.2)
[2023-06-02] MEDS: LEVOTHYROXINE SODIUM 112 MCG TABLET PO SCH (07:55)
[2023-06-02] MEDS: PANTOPRAZOLE 40 MG TABLET.DR PO SCH (07:55)
[2023-06-02] MEDS: GUAIFENESIN LA 600 MG TABLET.SA PO SCH ×2 (09:14→20:47)
[2023-06-02] MEDS: LOSARTAN POTASSIUM 25 MG TABLET PO SCH (09:14)
[2023-06-02] MEDS: LEVOFLOXACIN (250MG) 250 MG TABLET PO SCH (20:47)
[2023-06-02] MEDS: ENOXAPARIN SODIUM 40 MG/0.4 ML DISP.SYRIN SQ SCH (20:48)
[2023-06-02] MEDS: ATORVASTATIN 40 MG TABLET PO SCH (21:07)
[2023-06-02] MEDS: INSULIN REGULAR, HUMAN 100 UNIT/ML 3 ML VIAL SQ PRN (21:07)
[2023-06-03] VITALS (8 sets, daily range): BP systolic 127–145; BP diastolic 58–68; TEMP 98.1–98.8; O2SAT 94–98
[2023-06-03] MEDS: ALBUTEROL FS 2.5 MG/0.5 ML VIAL.NEB NEB SCH ×3 (01:29→13:12)
[2023-06-03] MEDS: IPRATROPIUM NEB FS 0.5 MG/2.5 ML AMPUL.NEB NEB SCH ×3 (01:29→13:11)
[2023-06-03] MEDS: methylPREDNISolone SOD SUCC 125 MG/2ML VIAL IV SCH ×2 (05:10→12:17)
[2023-06-03] MEDS ORDERED: LEVOTHYROXINE SODIUM 112 MCG TABLET PO SCH (06:00)
[2023-06-03] MEDS: BLOOD SUGAR DIAGNOSTIC 1 EACH STRIP IN SCH ×2 (06:32→11:52)
[2023-06-03] MEDS: INSULIN REGULAR, HUMAN 100 UNIT/ML 3 ML VIAL SQ PRN ×2 (06:37→12:12)
[2023-06-03] MEDS: PANTOPRAZOLE 40 MG TABLET.DR PO SCH (08:10)
[2023-06-03] MEDS: LOSARTAN POTASSIUM 25 MG TABLET PO SCH (08:43)
[2023-06-03] MEDS: GUAIFENESIN LA 600 MG TABLET.SA PO SCH (08:44)
== END 2023-06-03 15:54 | disposition home or self-care (01) | DRG 203 ==
LOC: ER 15:53 → MED 21:41 → TELE 06-01 → MED 06-01 16:01
DX: J45.901 Unspecified asthma with (acute) exacerbation (principal); G47.33 Obstructive sleep apnea (adult) (pediatric); E03.9 Hypothyroidism, unspecified; E78.5 Hyperlipidemia, unspecified; I10 Essential (primary) hypertension; D72.829 Elevated white blood cell count, unspecified; E66.9 Obesity, unspecified; I27.20 Pulmonary hypertension, unspecified; Z68.36 Body mass index [BMI] 36.0-36.9, adult; Z20.822 Contact with and (suspected) exposure to COVID-19
CPT/HCPCS: 36415; 70220-TC; 71045-TC; 80048-TC; 80053-TC; 80076-TC; 82962-TC; 83735-TC; 83880; 84100-TC; 84484-TC; 85025-TC; 93307-TC; 94799-TC; C9803; G0378; J1650; J1815; J2930; J3475